=== PATIENT | male | born 1955 | race Caucasian/White ===

== ENCOUNTER → 2017-01-08 | Outpatient (CLI) | payer BC ==
--- NOTE | ~2017-01-08 | CR7 ---
[facility] A Service of [facility] RADIOLOGY TEXT RESULTS PATIENT: CATHRYN BROWN LOCATION: [facility] : 51 UNIT #: [id number] AGE: [address]: Manuel Coe MD SEX: M ORDER DR: [id number] [facility] [address] [place], [place] [address] [id number] O MR#: [id number] Acc #: [id number] NAME: CATHRYN BROWN : 1955 SEX: M STUDY DATE/TIME: 01/08/2017 9:10 UNIT: [facility] ROOM: STUDY DESCRIPTION: CR Abdomen Single AP View Attending Physician: Manuel Coe M.D. Referring Physician: Manuel oCe M.D. Ordering Physician: Maunel Coe M.D. Primary Care Physician: Juan Jose Hammond M.D. MEDICAL IMAGING REPORT This report is preliminary unless electronic signature is present EXAM Abdominal radiograph INDICATIONS Renal calculi. Lithotripsy 6 days ago with stent placement. PROCEDURE 2 supine views of the abdomen. COMPARISON None FINDINGS Right-sided stent is in place appropriately positioned. No visible calculus along the course of the stent. There is a 5 mm calculus at the lower pole of the right kidney and a possible 6 mm calculus at the lower pole of the left kidney. IMPRESSION 1. Right-sided stent in place with no visible calculus along the course of the stent. 2. 5 mm right lower pole and 6 mm left lower pole renal calculi. Dictated by... Larry He M.D. THIS IS AN ELECTRONICALLY VERIFIED REPORT Larry He M.D. at 01/09/2017 9:38 AM EED/to TD: 01/08/2017 11:30 JOB #: [id number] [facility] A Service of [facility] RADIOLOGY TEXT RESULTS PATIENT: CATHRYN BROWN LOCATION: [facility] : 51 UNIT #: [id number] AGE: [address]: Manuel Coe MD SEX: M ORDER DR: MEDICAL IMAGING REPORT Page 1 of 1 COPY
== END | disposition home or self-care (01) ==
LOC: CRAD 08:49
DX: N20.0 Calculus of kidney (principal); Z98.890 Other specified postprocedural states
CPT/HCPCS: 74000

== ENCOUNTER → 2017-02-19 | Outpatient (CLI) | payer BC ==
--- NOTE | ~2017-02-19 | CR7 ---
[facility] A Service of [facility] RADIOLOGY TEXT RESULTS PATIENT: CATHRYN BROWN LOCATION: [facility] : 53 UNIT #: [id number] AGE: [address]: Manuel Coe MD SEX: M ORDER DR: [id number] [facility] [address] [place], [place] [address] [id number] O MR#: [id number] Acc #: [id number] NAME: CATHRYN BROWN : 1955 SEX: M STUDY DATE/TIME: 02/19/2017 0824 UNIT: [facility] ROOM: STUDY DESCRIPTION: CR Abdomen Single AP View Attending Physician: Manuel Coe M.D. Referring Physician: Manuel Coe M.D. Ordering Physician: Manuel Coe M.D. Primary Care Physician: Juan Jose Hammond M.D. MEDICAL IMAGING REPORT This report is preliminary unless electronic signature is present EXAM Abdomen one-view 02/19/2017 0824 hours HISTORY 61-year-old man with history of right-sided kidney stones for 5 months. Patient had lithotripsy in December and in January for followup. COMPARISON 01/08/2017 FINDINGS Supine view of the abdomen and pelvis were performed. The right ureteral stent has been removed in the interval. No definite right renal or ureteral stone is seen. There is a faintly seen 5-6 mm stone over the lower pole left kidney unchanged. No left ureteral calculus is seen. There is very little gas in the colon or small bowel. IMPRESSION 1. Interval removal of the right ureteral stent since 01/08/2017. No stones are seen over the right kidney or right ureter. 2. Faintly seen is a stone or stones measuring up to 6 mm in the lower pole left kidney similar to 01/08/2017. No left ureteral calculus is seen. Dictated by... Nisreen Brooks M.D. THIS IS AN ELECTRONICALLY VERIFIED REPORT Nisreen Brooks M.D. at 02/20/2017 9:38 AM Manuel TD: 02/19/2017 16:09 JOB #: [id number] [facility] A Service of [facility] RADIOLOGY TEXT RESULTS PATIENT: CATHRYN BROWN LOCATION: [facility] #: [id number] : 51 UNIT #: [id number] AGE: [address]: Manuel Coe MD SEX: M ORDER DR: MEDICAL IMAGING REPORT Page 1 of 1 COPY
== END | disposition home or self-care (01) ==
LOC: CRAD 08:15
DX: N20.0 Calculus of kidney (principal); Z98.890 Other specified postprocedural states
CPT/HCPCS: 74000